=== PATIENT | female | born 1975 | race Caucasian/White ===

== ENCOUNTER 2017-07-15 18:02 | Emergency (ER) | payer SELFPAY ==
[~2017-07-15 18:02] MED LIST: ATEN50 PO; CEPH500 PO; CODACE30 PO; HYDACE5 PO; IBUP800 PO; MECL25 PO; NITR100CA PO; PENVK500 PO; RANI150 PO; SULTRIDS PO
== END 2017-07-15 19:02 | disposition left against medical advice (07) ==
LOC: ER 18:02
DX: Z53.21 Procedure and treatment not carried out due to patient leaving prior to being seen by health care provider (principal)

== ENCOUNTER → 2017-10-16 | Outpatient (CLI) | payer OTHER ==
[2017-10-16 15:42] LABS: BASOPHILS ABSOLUTE AUTO 0.04 K/mm3 (0.00-0.23); BASOPHILS PERCENT AUTO 1 % (0-2); EOSINOPHILS ABSOLUTE AUTO 0.06 K/mm3 (0.00-0.68); EOSINOPHILS PERCENT AUTO 1 % (0-6); Hemoglobin 13.6 g/dL (11.5-16.0); IMMATURE GRAN ABSOLUTE AUTO 0.01 K/mm3 (0.00-0.10); IMMATURE GRAN PERCENT AUTO 0 % (0-1); LYMPHOCYTES ABSOLUTE AUTO 1.63 K/mm3 (0.84-5.20); LYMPHOCYTES PERCENT AUTO 34 % (21-46); MONOCYTES ABSOLUTE AUTO 0.47 K/mm3 (0.16-1.47); MONOCYTES PERCENT AUTO 10 % (4-13); Mean Corpuscular HGB 30.4 pg (26.0-34.0); Mean Corpuscular Volume 89 fL (80-100); Mean Platelet Volume 8.8 fL (9.1-12.4); NEUTROPHILS ABSOLUTE AUTO 2.57 K/mm3 (1.96-9.15); NEUTROPHILS PERCENT AUTO 54 % (41-73); Platelet Count 253 K/mm3 (150-400); RDW Coefficient Variation 13.5 % (11.7-14.2); RDW Standard Deviation 43.4 fL (35.1-46.3); Red Blood Cell Count 4.48 M/mm3 (3.80-5.20); White Blood Cell Count 4.78 K/mm3 (4.00-11.30)
[2017-10-16 16:01] LABS: Alanine Aminotransfer (ALT/SGP 35 U/L (12-78); Albumin, Blood 3.5 g/dL (3.4-5.0); Albumin/Globulin Ratio 0.9 (0.8-1.8); Alk Phos 72 U/L (40-126); Anion Gap 8 mmol/L (6-16); Aspartate Aminotrans (AST/SGOT 38 U/L (12-37); Bilirubin, Total 0.6 mg/dL (0.1-1.0); Blood Urea Nitrogen 8 mg/dL (8-24); Bun/Creatinine Ratio 10.5 (12.0-20.0); CO2, Blood 28 mmol/L (21-32); Chloride, Blood 102 mmol/L (98-108); Creatinine, Blood 0.76 mg/dL (0.40-1.00); Globulin, Blood 4.1 g/dL (2.2-4.0); Glomerular Filtration Rate >60 (60-); Glucose, Blood 103 mg/dL (70-99); Sodium, Blood 138 mmol/L (136-145); Total Protein, Blood 7.6 g/dL (6.4-8.2)
== END | disposition home or self-care (01) ==
LOC: LAB SHORT 15:39 → LAB EV 15:39
PROVIDERS: Physician Assistant
DX: R10.9 Unspecified abdominal pain (principal)
CPT/HCPCS: 80053; 83690; 85025

== ENCOUNTER 2019-03-06 12:54 | Emergency (ER) | payer OTHER ==
[~2019-03-06] VITALS: Ht 162.6 cm; Wt 77.1 kg
[2019-03-06] MEDS ORDERED: CYCL10 PO (13:49)
[2019-03-06] MEDS ORDERED: Norco 5-325 Ta1 EACH PO (13:52)
== END 2019-03-06 14:23 | disposition home or self-care (01) ==
LOC: ER 12:54
DX: G89.29 Other chronic pain (principal); M54.5 Low back pain; I10 Essential (primary) hypertension; Z79.899 Other long term (current) drug therapy; Z79.891 Long term (current) use of opiate analgesic
CPT/HCPCS: 96372; 99283-25; J1885

== ENCOUNTER 2020-03-27 20:34 | Emergency (ER) | payer OTHER ==
[~2020-03-27 20:34] MED LIST changes: +CYCL10 PO; +Norco 5-325 Ta1 EACH PO
== END 2020-03-27 20:44 | disposition left against medical advice (07) ==
LOC: ER 20:34
DX: Z53.21 Procedure and treatment not carried out due to patient leaving prior to being seen by health care provider (principal)

== ENCOUNTER 2020-12-15 18:49 | Emergency (ER) | payer OTHER ==
[~2020-12-15] VITALS: Ht 162.6 cm; Wt 81.2 kg
[2020-12-15] MEDS ORDERED: LOSA50 PO (19:05)
[2020-12-15 19:28] LABS: BASOPHILS ABSOLUTE AUTO 0.04 K/mm3 (0.00-0.23); BASOPHILS PERCENT AUTO 1 % (0-2); EOSINOPHILS ABSOLUTE AUTO 0.13 K/mm3 (0.00-0.68); EOSINOPHILS PERCENT AUTO 2 % (0-6); Hematocrit 37.5 % (33.0-51.0); Hemoglobin 12.6 g/dL (11.5-16.0); IMMATURE GRAN ABSOLUTE AUTO 0.01 K/mm3 (0.00-0.10); IMMATURE GRAN PERCENT AUTO 0 % (0-1); LYMPHOCYTES ABSOLUTE AUTO 2.67 K/mm3 (0.84-5.20); LYMPHOCYTES PERCENT AUTO 41 % (21-46); MONOCYTES ABSOLUTE AUTO 0.62 K/mm3 (0.16-1.47); MONOCYTES PERCENT AUTO 9 % (4-13); Mean Corpuscular HGB 30.1 pg (26.0-34.0); Mean Corpuscular HGB Conc 33.6 g/dL (31.5-36.5); Mean Corpuscular Volume 90 fL (80-100); Mean Platelet Volume 9.2 fL (9.1-12.4); NEUTROPHILS PERCENT AUTO 47 % (41-73); Platelet Count 303 K/mm3 (150-400); RDW Coefficient Variation 13.8 % (11.7-14.2); RDW Standard Deviation 45.4 fL (35.1-46.3); Red Blood Cell Count 4.18 M/mm3 (3.80-5.20); White Blood Cell Count 6.57 K/mm3 (4.00-11.30)
[2020-12-15 19:47] LABS: Alanine Aminotransfer (ALT/SGP 28 U/L (12-78); Albumin, Blood 3.5 g/dL (3.4-5.0); Albumin/Globulin Ratio 0.9 (0.8-1.8); Alk Phos 67 U/L (50-136); Anion Gap 3 mmol/L (6-16); Aspartate Aminotrans (AST/SGOT 20 U/L (12-37); Bilirubin, Total 0.4 mg/dL (0.1-1.0); Blood Urea Nitrogen 14 mg/dL (8-24); Bun/Creatinine Ratio 17.3 (12.0-20.0); CO2, Blood 28 mmol/L (21-32); Chloride, Blood 107 mmol/L (98-108); Creatinine, Blood 0.81 mg/dL (0.40-1.00); Globulin, Blood 3.9 g/dL (2.2-4.0); Glomerular Filtration Rate >60 (60-); Glucose, Blood 90 mg/dL (70-99); Potassium, Blood 3.7 mmol/L (3.5-5.5); Sodium, Blood 138 mmol/L (136-145); Total Protein, Blood 7.4 g/dL (6.4-8.2)
[2020-12-15 20:20] LABS: Troponin I <0.015 ng/mL (0.000-0.040)
[2020-12-16] MEDS ORDERED: Catapres0.1 MG PO (00:13)
== END 2020-12-16 00:22 | disposition home or self-care (01) ==
LOC: ER 18:49
PROVIDERS: Physician Assistant
DX: I16.0 Hypertensive urgency (principal); I10 Essential (primary) hypertension; Z79.899 Other long term (current) drug therapy
CPT/HCPCS: 36415; 70450; 80053; 83690; 84484; 85025; 93005; 93010; 96374; 99284-25; J0360

== ENCOUNTER 2022-04-29 13:57 | Inpatient (IN) | payer OTHER ==
[~2022-04-29] VITALS: Ht 162.6 cm; Wt 82.1 kg
[~2022-04-29 13:57] MED LIST changes: +Catapres0.1 MG PO; +LOSA50 PO
[2022-04-29 14:39] LABS: BASOPHILS ABSOLUTE AUTO 0.03 K/mm3 (0.00-0.23); BASOPHILS PERCENT AUTO 1 % (0-2); EOSINOPHILS ABSOLUTE AUTO 0.05 K/mm3 (0.00-0.68); EOSINOPHILS PERCENT AUTO 1 % (0-6); Hematocrit 36.5 % (33.0-51.0); IMMATURE GRAN ABSOLUTE AUTO 0.01 K/mm3 (0.00-0.10); IMMATURE GRAN PERCENT AUTO 0 % (0-1); LYMPHOCYTES ABSOLUTE AUTO 2.39 K/mm3 (0.84-5.20); LYMPHOCYTES PERCENT AUTO 37 % (21-46); MONOCYTES ABSOLUTE AUTO 0.66 K/mm3 (0.16-1.47); MONOCYTES PERCENT AUTO 10 % (4-13); Mean Corpuscular HGB 30.3 pg (26.0-34.0); Mean Corpuscular HGB Conc 35.6 g/dL (31.5-36.5); Mean Corpuscular Volume 85 fL (80-100); Mean Platelet Volume 9.1 fL (9.1-12.4); NEUTROPHILS ABSOLUTE AUTO 3.26 K/mm3 (1.96-9.15); NEUTROPHILS PERCENT AUTO 51 % (41-73); Platelet Count 356 K/mm3 (150-400); RDW Coefficient Variation 12.8 % (11.7-14.2); RDW Standard Deviation 39.2 fL (35.1-46.3); Red Blood Cell Count 4.29 M/mm3 (3.80-5.20)
[2022-04-29 14:57] LABS: Albumin, Blood 3.9 g/dL (3.4-5.0); Bilirubin, Total 0.7 mg/dL (0.1-1.0); Bun/Creatinine Ratio 23.2 (12.0-20.0); Calcium, Blood 9.7 mg/dL (8.5-10.1); Creatinine, Blood 0.86 mg/dL (0.40-1.00); Globulin, Blood 3.8 g/dL (2.2-4.0); Total Protein, Blood 7.7 g/dL (6.4-8.2)
[2022-04-29] MEDS ORDERED: CHLO25B PO (14:57)
[2022-04-29] MEDS ORDERED: AMLO10 PO (14:57)
[2022-04-29] MEDS ORDERED: ATOR40TA PO (14:58)
[2022-04-29 16:38] LABS: Magnesium, Blood 1.9 mg/dL (1.6-2.4); Thyroid Stimulating Hormone 1.41 uIU/mL (0.360-4.800)
--- NOTE | 2022-04-29 21:00 | NUR ---
ADMIT NOTE; PT ARRIVED TO UNIT AT 2100, IV POTASSIUM WAS INFUISNG AT TIME OF ARRIVAL CONGRUENTLY WITH NS. PT ARRIVED VIA ED GURNEY, PT WAS ABLE TO TRANSFER FROM ED GURNEY TO HOSPITAL BED WITH A STANDBY ASSIT. PT HAS SOME NUMBNESS AND WEAKNESS TO HER L SIDE, BUT REMAINS ABLE TO ABULATE AND TRANSFER WITH A STANDBY ASSIT. PT ARRIVED ON RA AND REMAINS ON RA. TELE IN PLACE. PT RESTING IN BED NOW.
--- NOTE | 2022-04-30 04:43 | NUR ---
SHIFT SUMMARY; PT WITH NO ACUTE MEDICAL CHANGES THROUGHOUT THE NIGHT. PT IS A STANDBY ASSIT DUE TO SOME L SIDED WEAKNESS R/T ACUTE CVA. PT ON TELE, NSR IN THE 'S. PT HAS A NS INFUSION RUNNING AT 150ML/HR. PT CURRENTLY RESTING IN BED WITH THE BED IN THE LOWEST POSITION AND THE CALL LIGHT AT BEDSIDE.
[2022-04-30 09:18] LABS: Bun/Creatinine Ratio 21.5 (12.0-20.0); Calcium, Blood 8.9 mg/dL (8.5-10.1); Creatinine, Blood 0.84 mg/dL (0.40-1.00); Potassium, Blood 3.2 mmol/L (3.5-5.5)
--- NOTE | 2022-04-30 19:30 | NUR ---
SHIFT SUMMARY PATIENT ALERT AND ORIENTED THROUGHOUT SHIFT. LEFT SIDED WEAKNESS. ABLE TO AMBULATE INDEPENDENTLY IN ROOM. LEFT SIDE HAND/ARM FEEL HEAVY AND SOME N/T. LEFT REHAB NURSING TECH WEAKER THAN RIGHT. NO SLURRED SPEECH, FACIAL DROOP. PUPILS EQUAL AND REACTIVE. TOLERATING CARDIAC DIET AND LIQUIDS. NSR ON TELE. PLAN FOR DISCHARGE TOMORROW 05/01/22. REPROT GIVEN TO SUPPORT DIRECTOR RN.
[2022-05-01 05:14] LABS: Bun/Creatinine Ratio 18.4 (12.0-20.0); Calcium, Blood 9.5 mg/dL (8.5-10.1); Creatinine, Blood 0.76 mg/dL (0.40-1.00); Potassium, Blood 3.5 mmol/L (3.5-5.5)
--- NOTE | 2022-05-01 06:55 | NUR ---
SHIFT SUMMARY; NO ACUTE MEDICAL CHANGES THROUGHOUT THE NIGHT. THE PT REMAINED INDEPENDENT IN THE ROOM. THE PTS L ARM REMAINS WEAK WITH NUMBNESS AND TINGLING BUT THE PTS L LEG DEFICITS HAVE SINCE RESOLVED. THE PT WILL LIKELY DC HOME TODAY. CURRENTLY THE PT IS RESTING IN BED, TELE IS ON-NSR IN THE 80'S THROUGHOUT THE SHIFT WITH A BUNDLE BRANCH BLOCK. THE BED IS IN THE LOWEST POSITION AND THE CALL LIGHT IS WITHIN REACH.
[2022-05-01] MEDS ORDERED: ASPI81CH PO (11:13)
--- NOTE | 2022-05-01 13:24 | NUR ---
PT DISCHARGED THE PT VERBALIZED UNDERSTANDING OF THE DC INSTRUCTIONS. PTS PRESCRIPTION FAXED TO [facility] REQUESTED, THE PT WAS TRANSFERED VIA WHEELCHAIRACCOMPANIED BY THIS RN TO THE FRONT TO CATCH HER RIDE HOME
== END 2022-05-01 12:25 | disposition home or self-care (01) | DRG 65 ==
LOC: ER 13:57 → MEDS 18:09
PROVIDERS: Physician Assistant; Student in an Organized Health Care Education/Training Program; ADMIT Internal Medicine
DX: I63.81 Other cerebral infarction due to occlusion or stenosis of small artery (principal); G81.94 Hemiplegia, unspecified affecting left nondominant side; I27.20 Pulmonary hypertension, unspecified; E87.6 Hypokalemia; E78.00 Pure hypercholesterolemia, unspecified; I10 Essential (primary) hypertension; M54.9 Dorsalgia, unspecified; G89.29 Other chronic pain; Z79.899 Other long term (current) drug therapy; Z79.02 Long term (current) use of antithrombotics/antiplatelets; Z98.890 Other specified postprocedural states
CPT/HCPCS: 36415; 70450; 70496; 70498; 70553; 80048; 80053; 83036; 83735; 84443; 85025; 93005; 93010; 93306; 97116; 97161; 97530; A9270; A9579; J1650; J3480; J7030; J7050; Q9967

== ENCOUNTER 2024-09-02 08:51 | Day surgery (SDC) | payer OTHER ==
[~2024-09-02] VITALS: Ht 162.6 cm; Wt 79.5 kg
[~2024-09-02 08:51] MED LIST changes: +AMLO10 PO; +ASPI81CH PO; +ATOR40TA PO; +Bupivacaine HCl 0.25% 30 ML Injection ONE; +CHLO25B PO; +Dexamethasone Sod Phos 10 MG/ML 1ML VIAL ONE; +EPINEPhrine HCl 1 MG/ML 1ML Amp ONE; +FentaNYL Citrate 50 MCG/ML 2 ML Injection ONE; +LIPITOR80 MG PO; +Lidocaine 1%-Epineph 1:100000 20 ML MDV ONE; +Midazolam HCl 1MG / ML 2ML Vial ONE; +Ondansetron HCl 2 MG / ML 2ML Vial ONE; +Rocuronium Bromide 10 MG/ML 5ML Injection IV ONE; +propofoL 20 ML IV ONE
[2024-09-02] MEDS ORDERED: CeFAZolin Sodium 2,000 MG VIAL ONE (08:55)
[2024-09-02] MEDS ORDERED: Tranexamic Acid 100 ML IV ONE (08:55)
[2024-09-02] MEDS ORDERED: NS 50 ML IV ONE (08:57)
[2024-09-02] MEDS ORDERED: VALSARTAN-HCTZ1 EAC5 (09:14)
[2024-09-02] MEDS ORDERED: HYDROCODONE-AC1 EA19 (09:14)
[2024-09-02] MEDS ORDERED: Lactated Ringer's 1,000 ML IV ONE ×2 (09:25→12:50)
--- NOTE | 2024-09-02 10:45 | NUR ---
09/02/24 1045 Saqib Aviles, BLOCK TIMEOUT 1035 BLOCK STARTED 1040 BLOCK FINISHED 1044
[2024-09-02] MEDS ORDERED: EPINEPhrine HCl 1 MG/ML 1ML Amp XX ONE (11:28)
[2024-09-02] MEDS ORDERED: Sugammadex Sodium 200 MG/2ML SDV (100 MG/ML) ONE (11:47)
[2024-09-02] MEDS ORDERED: FentaNYL Citrate 50 MCG/ML 2 ML Injection ONE (12:19)
[2024-09-02] MEDS ORDERED: HYDROmorphone HCl/Pf 1MG SYR ONE (12:42)
--- NOTE | 2024-09-02 13:08 | NUR ---
09/02/24 1308 [place] Luna PT C/O SEVER PAIN ON ARRIVING TO PACU. GIVEN 100 MCG TOTAL, PAIN CONTINUES AT 8/10. PT THEN GIVE DILAUDID PER ORDER AT A TOTAL OF 1MG. PT SATS TO 88%, PLACE ON O2 BY NC AT 2L. PAIN NOW 6/10
[2024-09-02] MEDS ORDERED: Acetaminophen 500 MG Tab ONE (13:40)
[2024-09-02] MEDS ORDERED: OxyCODONE HCL 5 MG TAB ONE (13:40)
[2024-09-02 13:52] VITALS: BP 135/79
--- NOTE | 2024-09-02 14:52 | NUR ---
09/02/24 3807 [place] Luna PT AND MOTHER INSTRUCTED ON USE OF POLAR PACK AND IS. BOTH STATED UNDERSTANDING. PT PAIN UPON D/C 10/25. PAIN DIRECTLY IN "BICEP" AND "ARMPIT" AREA.
== END 2024-09-02 14:35 | disposition home or self-care (01) ==
LOC: ORSCSDS 08:51
PROVIDERS: Orthopaedic Surgery Sports Medicine
PROC: 0LS34ZZ Reposition Right Upper Arm Tendon, Percutaneous Endoscopic Approach (ICD-10-PCS; principal; 2024-09-02 10:15)
PROC: 0RBJ4ZZ Excision of Right Shoulder Joint, Percutaneous Endoscopic Approach (ICD-10-PCS; principal; 2024-09-02 10:15)
DX: M75.21 Bicipital tendinitis, right shoulder (principal); M75.31 Calcific tendinitis of right shoulder; I10 Essential (primary) hypertension; E78.5 Hyperlipidemia, unspecified; F17.210 Nicotine dependence, cigarettes, uncomplicated; Z86.73 Personal history of transient ischemic attack (TIA), and cerebral infarction without residual deficits; Z79.899 Other long term (current) drug therapy
CPT/HCPCS: A9270; C1713; J0171; J0690; J1100; J1171; J2250; J2405; J2704; J3010